=== PATIENT | female | born 1980 | race Caucasian/White ===

== ENCOUNTER → 2020-09-28 | Outpatient (CLI) | payer MEDICAID, OTHER ==
--- NOTE | 2020-09-28 14:26 | KCIC ---
EXAM: Brain MRI without contrast. HISTORY: Hypogonadism. Hyperprolactinemia. TECHNIQUE: Multiplanar, multisequence magnetic resonance imaging of the brain was performed without c ontrast. COMPARISON: None. FINDINGS: There is no restricted diffusion to suggest acute or subacute infarction. There is no susce ptibility effect to suggest hemorrhage. There is no mass effect or midline shift. There is no hydroce phalus. There is slight heterogeneous T2 signal within the bill which is likely physiologic. No convi ncing pontine lesion is seen. The pituitary is normal in size. The sella is normal in size. The infundibulum and optic chiasm are n ormal in position. There are normal flow voids within the cerebral vessels. There is severe paranasal sinus because of thickening with small maxillary sinus air-fluid levels due to sinusitis. The orbits and mastoid air cells are unremarkable. IMPRESSION: 1. No acute intracranial finding or evidence of the pituitary adenoma. Note is made that a pituitary protocol MRI with and without contrast is more sensitive for pituitary lesions and can be performed i f there is concern for occult lesion on this exam. 2. Paranasal sinus disease. Electronically signed by: Ana Real MD (09/28/2020 2:23 PM) [id number]
== END ==
LOC: KCIC MRI 12:49
PROVIDERS: ATTEND Family Medicine
DX: E22.1 Hyperprolactinemia (principal)
CPT/HCPCS: 70551